=== PATIENT | male | born 1965 | race Caucasian/White ===

== ENCOUNTER 2019-04-15 09:33 | Inpatient (IN) ==
[2019-04-15] MEDS ORDERED: SODIUM CHLORIDE 0.9% 1000ML 1,000 ML IV ONE (10:22)
[2019-04-15 10:42] LABS: Basophils # (auto) 0.03 K/uL (0-0.2); Basophils % (auto) 0.5 %; Eosinophils # (auto) 0.27 K/uL (0-0.5); Eosinophils % (auto) 4.1 %; Hematocrit (blood only) 45.9 % (42-52); Hemoglobin 15.9 g/dL (14.0-18.0); Immature Granulocytes # (auto) 0.02 K/uL (0.00-0.02); Immature Granulocytes % (auto) 0.3 %; Lymphocytes # (auto) 2.07 K/uL (1.2-3.4); Lymphocytes % (auto) 31.6 %; Mean Corpuscular Hgb Conc 34.6 g/dL (32-36); Mean Corpuscular Volume 86.6 fL (80-100); Mean Platelet Volume 10.2 fL (7.4-10.4); Monocytes # (auto) 0.54 K/uL (0.11-0.59); Monocytes % (auto) 8.2 %; Neutrophils # (auto) 3.63 K/uL (1.4-6.5); Neutrophils % (auto) 55.3 %; Platelet Count 186 K/uL (130-400); RDW Coefficient of Variation 13.3 % (11.5-14.5); RDW Standard Deviation 42.3 fL (36.4-46.3); White Blood Count 6.56 K/uL (4.8-10.8)
--- NOTE | 2019-04-15 10:46 | XRay Report ---
XR chest 1V portable HISTORY: Atypical Chest Pain COMPARISON: None. FINDINGS: The lungs are clear. Cardiac silhouette is borderline enlarged. No pleural effusions. No pn eumothorax. IMPRESSION: Borderline cardiomegaly. Otherwise, no acute process within the chest. Electronically signed by: Zohaib Noland M.D. 04/15/2019 10:44 AM
[2019-04-15 10:57] LABS: Alanine Aminotransferase 33 U/L (12-78); Albumin Level 3.9 gm/dl (3.4-5.0); Aspartate Aminotransferase 17 U/L (15-37); BUN Creatinine Ratio 14.1 (10-20); Blood Urea Nitrogen 12 mg/dl (7-18); Carbon Dioxide 30 mmol/L (21-32); Chloride 106 mmol/L (98-107); Creatinine Clr Calc Pharmacy 132.2 ml/min; Est GFR (African American) 114.2; Est GFR (Non-African American) 98.5; Glucose 105 mg/dl (70-99); Lipase 121 U/L (73-393); Magnesium 2.1 mg/dl (1.8-2.4); Potassium 4.1 mmol/L (3.5-5.1); Sodium 139 mmol/L (136-145)
[2019-04-15 11:08] LABS: Albumin Globulin Ratio 1.2 (0.9-2); Alkaline Phosphatase 76 U/L (45-117); Bilirubin,Total 0.4 mg/dl (0.2-1); Globulin 3.3 gm/dl (2.5-4.0); Thyroid Stimulating Hormone 0.823 uIu/ml (0.300-4.500); Total Protein 7.2 gm/dl (6.4-8.2); Troponin I < 0.015 ng/ml (0-0.045)
[2019-04-15] MEDS ORDERED: ASPIRIN CHEW 324 MG PO STA (12:07)
--- NOTE | 2019-04-15 13:13 | History & Physical Report ---
Date of Service April 15, 2019 Assessment & Plan (1) Chest pain, exertional: Mr. Richter is a 53-year-old male who has significant past medical history of HTN, HLD, GERD, tobacco abuse, alcohol abuse who presents to [facility] ED secondary to exertional chest pain x2 to 3 weeks. In ED patient was hypertensive but otherwise hemodynamically stable. His initial troponin was negative and EKG revealed normal sinus rhythm at [address] or T wave changes. His CBC and CMP relatively unremarkable except for mildly elevated glucose at 105. Chest x-ray revealed cardiomegaly but no overt cardiopulmonary abnormality. Chest pain with exertion and now at rest concerning for unstable angina Currently chest pain free Risk factors include HLD, Tobacco/etoh use, hx of HTN admit to PCU consult cardiology obtain echocardiogram cycle troponin and ecg fasting lipid panel, a1c in a.m. losartan 50mg x 1 now - monitor BP tx accordingly NPO after midnight (2) HTN (hypertension): Patient with history of hypertensive in the past, treated with lisinopril 5 mg daily. Per lisinopril discontinued secondary to patient with significant weight loss and side effect of cough Give 50mg Losartan x 1 now - monitor BP will need to determine if pt has true uncontrolled HTN at baseline vs situational would avoid CCB for now given trace lower ext swelling (3) High cholesterol: Continue statin - increase to 80mg daily with 1st dose now for plaque stabilization Fasting lipid panel in a.m. (4) Acid reflux: Continue PPI Asymptomatic Do not feel symptoms related to GERD (5) Tobacco abuse: Nicotine patch Current smoking cessation (6) EtOH dependence: Patient admits to drinking 2-3 light beers a day Alcohol withdrawal monitoring protocol (7) DVT prophylaxis: SCD/TEDS for now Disposition: admit to PCU Follow up: PCP Dr. Rey upon discharge Patient was seen and examined in collaboration with Dr. Plata, please see addendum History of Present Illness Chief Complaint: Chest pain with exertion x2 to 3 weeks. Primary Care Provider: Terence Rey MD Mr. Richter is a 53-year-old male who has significant past medical history of HTN, HLD, GERD, tobacco abuse, alcohol abuse who presents to [facility] ED secondary to exertional chest pain x2 to 3 weeks. He elicits over the past 2 to 3 weeks whenever he exerts himself he gets substernal, nonradiating chest pressure. is at bedside. Symptoms resolved approximately 10 minutes with rest. 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 He has never had anything like this in the past. He does occasionally get GERD and therefore he tried to drink some milk which usually improves his symptoms. This did not resolve his symptoms. He denies any diaphoresis, lightheadedness, dizziness, nausea, vomiting, palpitations, cough, hemoptysis with symptoms. He further denies any recent illness, fever, chills, sweats, syncope, shortness of breath at rest, CATHERINE, PND, orthopnea, abdominal pain, change in bowel or urinary habits. He occasionally does get mild lower extremity swelling. He is also noticed his symptoms at work. What prompted him to seek ED treatment today is that over the past 2 nights he woke up at approximately 3 AM with substernal chest pressure while lying down. The symptoms are set up. He is an every day smoker approximately 1 to 2 packs a day. He also drinks 2-3 light beers daily. He is unsure of his exact family history but does elicit that his sister who is 59 was told she has a, "blockage," but unknown to what extent. He has not had anything to eat today but he did have 1 cup of caffeinated coffee. In ED patient was hypertensive but otherwise hemodynamically stable. His initial troponin was negative and EKG revealed normal sinus rhythm at [address] or T wave changes. His CBC and CMP relatively unremarkable except for mildly elevated glucose at 105. Chest x-ray revealed cardiomegaly but no overt cardiopulmonary abnormality. Allergies Allergy/AdvReac Type Severity Reaction Status Date / Time No Known Allergies Allergy Unverified 04/15/19 11:34 Home Medications Home Medications Medication Instructions Recorded Confirmed Type atorvastatin 40 mg PO HS 04/15/19 04/15/19 History omeprazole 20 mg PO BID 04/15/19 04/15/19 History Past Med/Surg History Medical History Acid reflux High cholesterol HTN (hypertension) Surgical History History of colonoscopy History of esophagogastroduodenoscopy (EGD) History of vasectomy Family History Sister Heart disease, Onset Age: 59 Father Non Hodgkin's lymphoma Social History Preferred Language: Mongolian Communication Ability: Effective 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 Beliefs That Will Affect Care: None marital status: Current Living Situation: Spouse current occupational status: employed Other Information That Helps Us Care for You: No Feels Safe at Home: Yes Safety Concerns: Feels Safe At This Time Smoking Status: Current every day smoker Tobacco Type: cigarettes ; Years Smoked: 30 ; Cigarettes Per Day: 20-40 a day ; Do You Dip or Chew Tobacco: No ; Second Hand Exposure: No ; Tobacco Cessation Education Requested by Patient: No Hx Alcohol Use: Yes Alcohol type: beer Alcohol Intake Frequency Comment: 2-3 light beers daily Hx Substance Use: No Review of Systems Review of Systems: All systems reviewed & are unremarkable except as noted in HPI & below Physical Exam Physical Exam: Constitutional: WD/WN, male, obese, vitals as above, NAD, sitting up in bed, pleasant, conversing easily Head: Normocephalic, Atraumatic Eyes: PERRL, conjunctivae normal, anicteric sclerae ENMT: external ear and nose normal, oropharynx normal Neck: trachea midline, no thyromegaly normal visual inspection Respiratory: normal respiratory effort, lungs clear to auscultation, no wheeze, rales, rhonchi. Normal insp/exp effort, no accessory muscle use Cardiovascular: RRR, no murmur, trace pretibial edema, negative homans, no warmth or redness Vessels: no JVD or carotid bruit Chest: normal inspection of chest Abdomen: Protuberant abdomen, normal bowel sounds, soft, nontender, no hepatosplenomegaly Musculoskeletal: no cyanosis or clubbing, extremities motor strength 5/5 Skin: no rashes, warm and dry normal turgor Neurologic: PERRL, EOMI, accommodation nl, no face palsy, no dysarthria CN's II-XI intact bilaterally and moves all extremities Psychiatric: A+Ox3, euthymic affect Lymphatic: no cervical or axillary lymphadenopathy : deferred Results & Data Vital Signs (Past 12 Hours) Vital Signs Temp Pulse Pulse Resp BP BP Pulse Ox 04/15/19 11:00 69 71 20 142/91 H 96 04/15/19 09:41 36.7 C 81 18 171/117 H 96 Laboratory Results Short CBC 04/15/19 Range/Units 10:30 WBC 6.56 (4.8-10.8) K/uL Hgb 15.9 (14.0-18.0) g/dL Hct 45.9 (42-52) % Plt Count 186 (130-400) K/uL BMP 04/15/19 10:30 Sodium 139 Potassium 4.1 Chloride 106 Carbon Dioxide 30 BUN 12 Creatinine 0.87 Glucose 105 H Calcium 9.0 Cardiac Enzymes 04/15/19 Range/Units 10:30 Troponin I < 0.015 (0-0.045) ng/ml Liver Function 04/15/19 Range/Units 10:30 Total Bilirubin 0.4 (0.2-1) mg/dl AST 17 (15-37) U/L ALT 33 (12-78) U/L Alkaline Phosphatase 76 (45-117) U/L Albumin 3.9 (3.4-5.0) gm/dl Diagnostic Findings CXR: IMPRESSION: Borderline cardiomegaly. Otherwise, no acute process within the chest. ECG Rate (beats per minute): 68 Rhythm: normal sinus Code Status & VTE Plan Code Status Full VTE Prophylaxis Plan VTE Prophylaxis will be ordered: Yes Supervising Physician Co-Signing Physician Notes I have seen and examined the patient and have discussed the case with the provider above. I agree with the assessment and plan as stated with the following exceptions. 53 yo M with unstable angina presented with a couple weeks of increasing chest pain frequency and intensity. No known CAD or chest pain in the past with risk factors including smoking, hyperlipidemia and possibly undiagnosed HTN (although BP elevation may have also been situational). Echo with no acute wall motion abnormalities and normal EF. Trop negative and nonischemic EKG. Cardiology to cath in am. Metoprolol, topical nitrates, Lipitor, ASA and heparin drip added. Initially Losartan was started to better control BP, however, this was stopped once topical nitrates were added. BP should be followed closely by PCP as outpatient. Strongly advised for him to quit smoking. He reports being interested in trying chantix again after discharge, which worked for him in the past. Physical exam revealed NAD, WNWD man, normal heart exam with regular rate and rhythm heard, normal S1/2 and no murmurs, JVD or peripheral edema. Abdomen was soft and nontender without distension. Physical exam otherwise unremarkable. Cont medical management of UA as above, trend trop, cath in am. Boni, DO
[2019-04-15] MEDS ORDERED: LOSARTAN POTASSIUM 50 MG TAB PO SCH (13:30)
[2019-04-15] MEDS ORDERED: PERFLUTREN LIPID MICROSPHERE (DEFINITY) IV ONE (14:03)
[2019-04-15] MEDS ORDERED: POLYETHYLENE (MIRALAX) 17 GM PACK PO PRN (14:43)
[2019-04-15] MEDS ORDERED: ACETAMINOPHEN 325 MG TAB PO PRN (14:43)
[2019-04-15] MEDS ORDERED: ONDANSETRON INJ 2 MG/ML 2 ML VIAL IV PRN (14:43)
[2019-04-15] MEDS ORDERED: NITROGLYCERIN SL 0.4 MG/TAB TAB SL PRN (14:43)
[2019-04-15] MEDS ORDERED: MAGNESIUM HYDROXIDE SUSP 30 ML UDC PO PRN (14:43)
[2019-04-15] MEDS ORDERED: ALUMINUM/MAGNESIUM SUSP 30 ML UDC PO PRN (14:43)
[2019-04-15] MEDS: ATORVASTATIN 40 MG TAB PO SCH (15:37)
--- NOTE | 2019-04-15 16:13 | Cardiology Consultation ---
Date of Consultation April 15, 2019 Assessment & Plan (1) Unstable angina: (2) HTN (hypertension): (3) High cholesterol: (4) Tobacco abuse: (5) EtOH dependence: I had a long discussion with the patient and his family regarding his progressive exertional symptoms as well as chest tightness noted at rest last evening. I am concerned patient is experiencing unstable angina with progressive decline in functional capacity. Recommend beta-pastor, IV heparin infusion, aspirin, topical nitrates, and statin therapy. Further ischemic evaluation is indicated. Cardiac catheterization versus exercise stress testing discussed at length. Patient is agreeable to proceed with cardiac cat heterization in a.m. 04/16/2019. Cardiac enzymes will be cycled x3 sets. To need telemetry monitoring during hospitalization. Thank you for allowing to participate in care of your patient. History of Present Illness Reason for Consultation: Chest pain Requesting Physician: Dr. Plata Attending Physician: Ira Plata, DO History of Present Illness 53-year-old male presented to the emergency department with a 3-week history of progressive chest discomfort. Patient describes a tightness and heaviness occurring with ambulation particularly on incline. Noted symptoms approximately 3 weeks ago when walking on an incline at work. Discomfort relieved with rest. Chest tightness noted at lower levels of activity over the past week. Last night patient reports awakening on 3 occasions with chest tightness. Currently pain-free. Denies personal history of coronary disease, congestive heart failure, or rheumatic fever as a child. Admits to smoking 1 to 2 pack of cigarettes per day for nearly 40 years. Takes atorvastatin and omeprazole on a daily basis. Diagnosed with hypertension, however, no longer taking antihypertensive medications. Denies family history of premature CAD. and daughter present at bedside. They offer no additional concerns/complaints this time. Allergies Allergy/AdvReac Type Severity Reaction Status Date / Time No Known Allergies Allergy Unverified 04/15/19 11:34 Home Medications Home Medications Medication Instructions Recorded Confirmed Type atorvastatin 40 mg PO HS 04/15/19 04/15/19 History omeprazole 20 mg PO BID 04/15/19 04/15/19 History Patient History Medical History Acid reflux High cholesterol HTN (hypertension) Surgical History History of colonoscopy History of esophagogastroduodenoscopy (EGD) History of vasectomy Family History Sister Heart disease, Onset Age: 59 Father Non Hodgkin's lymphoma Social History Preferred Language: Guamanian Communication Ability: Effective 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 Beliefs That Will Affect Care: None marital status: Current Living Situation: Spouse current occupational status: employed Other Information That Helps Us Care for You: No Feels Safe at Home: Yes Safety Concerns: Feels Safe At This Time Smoking Status: Current every day smoker Tobacco Type: cigarettes ; Years Smoked: 30 ; Cigarettes Per Day: 20-40 a day ; Do You Dip or Chew Tobacco: No ; Second Hand Exposure: No ; Tobacco Cessation Education Requested by Patient: No Hx Alcohol Use: Yes Alcohol type: beer Alcohol Intake Frequency Comment: 2-3 light beers daily Hx Substance Use: No Review of Systems Review of Systems: All systems reviewed & are unremarkable except as noted in HPI & below Physical Exam Constitutional: well developed, well nourished and + obese Respiratory: normal respiratory effort, lungs clear to auscultation Cardiovascular: Rate/Rhythm: regular rate and regular rhythm Heart Sounds: normal S1 and normal S2; no murmur and no cardiac rub Vessels: femoral pulses present and radial pulses present; no JVD and no carotid bruit Extremities: no calf tenderness, no pedal edema and no edema Gastrointestinal (Abdomen): Inspection/Auscultation: abdomen normal to inspection and normal bowel sounds; abdomen not distended Percussion/Palpation: abdomen soft; abdomen nontender, no guarding and abdomen not rigid Musculoskeletal: no cyanosis or clubbing, extremities motor strength 5/5 Neurologic: PERRL, EOMI, accommodation nl, no face palsy, no dysarthria Results & Data Vital Signs (Past 12 Hours) Vital Signs Temp Pulse Pulse Resp BP BP Pulse Ox 04/15/19 14:43 04/15/19 14:30 36.3 C L 64 16 161/96 H 96 04/15/19 13:30 64 16 137/95 96 04/15/19 13:00 63 18 155/105 H 95 04/15/19 12:51 74 25 H 181/122 H 94 04/15/19 12:43 68 18 171/113 H 98 04/15/19 12:30 69 18 144/100 H 96 04/15/19 12:00 61 16 139/92 95 04/15/19 11:30 68 18 136/93 94 04/15/19 11:06 67 20 142/91 H 95 04/15/19 11:00 69 71 20 142/91 H 96 04/15/19 09:41 36.7 C 81 18 171/117 H 96 Pulse Ox 04/15/19 14:43 96 04/15/19 14:30 04/15/19 13:30 04/15/19 13:00 04/15/19 12:51 04/15/19 12:43 04/15/19 12:30 04/15/19 12:00 04/15/19 11:30 04/15/19 11:06 04/15/19 11:00 04/15/19 09:41 (1) HTN (hypertension) Hypertension type: essential hypertension Qualified Code(s): I10 - Essential (primary) hypertension
[2019-04-15] MEDS ORDERED: HEPARIN IV BOLUS 8,000 UNITS in SYRINGE 0 ML IV ONE (16:15)
[2019-04-15] MEDS: NICOTINE 14 MG/24 HR PATCH TD SCH (16:25)
[2019-04-15 16:26] LABS: Partial Thromboplastin Ratio 1.1; Partial Thromboplastin Time 29.1 Seconds (21.0-31.0)
[2019-04-15] MEDS: NITROGLYCERIN 2% OINTMENT 30GM TUBE EXT SCH ×2 (16:26→19:58)
[2019-04-15] MEDS: HEPARIN SODIUM/DEXTROSE 25,000 UNITS/500 ML BAG IV SCH (16:27)
--- NOTE | 2019-04-15 19:32 | Emergency Department Note ---
Entered by Elayne Love acting as a scribe for Ramiro Yang MD History of Present Illness General Chief complaint: Chest Pain Stated complaint: CHEST PAINS Time Seen by Provider: 04/15/19 10:22 Source: patient History of Present Illness Provider complaint: chest pain Onset (ago): week(s) 1 Location: chest Radiation: non-radiation Pain Consistency: + intermittent Maximum Pain Intensity: 0 Relieved By: + rest Exacerbated By: + other (inclines and up stairs ) Associated symptoms: + denies other symptoms and + chest pain; no cough, no fever/chills and no nausea/vomiting The patient is a 53 y/o male who presents to the emergency department for evaluation of intermittent chest pain with exertion that began a week ago. The patient states that he has been hunting and sitting in the tree stand he is fine but walking his chest gets tight. He reports that he has issues with acid reflux that he thought may be the cause but it has been persisting so he feels a need to be evaluated. The states that the patient went hunting this morning and the patient states the most recent episode of symptoms was 3 hours ago. The patient denies a history of heart issues, fever, chills, cough, congestion, diarrhea, and any other symptoms. Home Medications Home Medications Medication Instructions Recorded Confirmed Type atorvastatin 40 mg PO HS 04/15/19 04/15/19 History omeprazole 20 mg PO BID 04/15/19 04/15/19 History Allergies Allergy/AdvReac Type Severity Reaction Status Date / Time No Known Allergies Allergy Unverified 04/15/19 11:34 Past Med/Surg History Medical History Acid reflux High cholesterol HTN (hypertension) (Acute) Surgical History History of colonoscopy History of esophagogastroduodenoscopy (EGD) History of vasectomy Family History Sister Heart disease, Onset Age: 59 Father Non Hodgkin's lymphoma Social History Preferred Language: Persian Communication Ability: Effective 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 Beliefs That Will Affect Care: None marital status: Current Living Situation: Spouse current occupational status: employed Other Information That Helps Us Care for You: No Feels Safe at Home: Yes Safety Concerns: Feels Safe At This Time Smoking Status: Current every day smoker Tobacco Type: cigarettes ; Years Smoked: 30 ; Cigarettes Per Day: 20-40 a day ; Do You Dip or Chew Tobacco: No ; Second Hand Exposure: No ; Tobacco Cessation Education Requested by Patient: No Hx Alcohol Use: Yes Alcohol type: beer Alcohol Intake Frequency Comment: 2-3 light beers daily Hx Substance Use: No Review of Systems See HPI for pertinent positives & negatives. and A total of 10 systems reviewed and were otherwise negative Physical Exam Vital Signs Vital Signs - 24 hr 04/15/19 09:41 04/15/19 09:48 04/15/19 11:00 Temperature 36.7 C Temperature Source Oral Pulse Rate 81 69 Pulse Rate [Apical] 71 Pulse Rate from SpO2 Sensor Pulse Rhythm Regular Pulse Rhythm [Apical] Regular Pulse Strength [Apical] Normal Respiratory Rate 18 20 Respiratory Effort / Characteristics Non-Labored Spontaneous Non-Labored Spontaneous Non-Labored Spontaneous Respiratory Depth Normal Normal Normal Respiratory Pattern Regular Regular Blood Pressure 171/117 H Blood Pressure [Right Arm] 142/91 H Blood Pressure Mean 135 Blood Pressure Mean [Right Arm] 108 Blood Pressure Position Sitting Blood Pressure Position [Right Arm] Lying Pulse Oximetry 96 96 Oxygen Delivery Method Room Air Room Air Room Air Sepsis Recent Fever Within 48 Hours No Sepsis New/Unexplained Change in Mental Status No Sepsis Action Taken by Nursing No Action Required 04/15/19 11:06 04/15/19 11:30 04/15/19 12:00 Temperature Temperature Source Pulse Rate 67 68 61 Pulse Rate [Apical] Pulse Rate from SpO2 Sensor 69 67 62 Pulse Rhythm Pulse Rhythm [Apical] Pulse Strength [Apical] Respiratory Rate 20 18 16 Respiratory Effort / Characteristics Respiratory Depth Respiratory Pattern Blood Pressure 142/91 H 136/93 139/92 Blood Pressure [Right Arm] Blood Pressure Mean 100 99 98 Blood Pressure Mean [Right Arm] Blood Pressure Position Blood Pressure Position [Right Arm] Pulse Oximetry 95 94 95 Oxygen Delivery Method Room Air Room Air Room Air Sepsis Recent Fever Within 48 Hours Sepsis New/Unexplained Change in Mental Status Sepsis Action Taken by Nursing 04/15/19 12:30 04/15/19 12:43 04/15/19 12:51 Temperature Temperature Source Pulse Rate 69 68 74 Pulse Rate [Apical] Pulse Rate from SpO2 Sensor 66 69 74 Pulse Rhythm Pulse Rhythm [Apical] Pulse Strength [Apical] Respiratory Rate 18 18 25 H Respiratory Effort / Characteristics Respiratory Depth Respiratory Pattern Blood Pressure 144/100 H 171/113 H 181/122 H Blood Pressure [Right Arm] Blood Pressure Mean 113 127 139 Blood Pressure Mean [Right Arm] Blood Pressure Position Blood Pressure Position [Right Arm] Pulse Oximetry 96 98 94 Oxygen Delivery Method Room Air Room Air Room Air Sepsis Recent Fever Within 48 Hours Sepsis New/Unexplained Change in Mental Status Sepsis Action Taken by Nursing GENERAL: Awake, alert, well-appearing, in no distress HENT: Normocephalic, atraumatic. Oropharynx with dry mucous membranes and otherwise unremarkable. EYES: Normal conjunctiva. Sclera non-icteric. NECK: Supple. No nuchal rigidity. FROM. No JVD. RESPIRATORY: Scant intermittent wheeze, otherwise clear. CARDIAC: Regular rate, normal rhythm. Extremities warm and well perfused. Pulses equal. ABDOMEN: Soft, non-distended. No tenderness to palpation. No rebound or guarding. No masses. RECTAL: Deferred. MUSCULOSKELETAL: Chest examination reveals no tenderness. The back is symmetrical on inspection without obvious abnormality. There is no CVA tenderness to palpation. No joint edema. LOWER EXTREMITIES: Calves are equal size bilaterally and non-tender. No edema. No discoloration. NEURO: Normal sensorium. No sensory or motor deficits noted. SKIN: No rash or jaundice noted. Course Course 1045: Past medical records reviewed. The patient was evaluated in room A10. A complete history and physical exam was performed. Based on the initial exam and the symptoms admission was recommended to the patient. 1252: I spoke with Karen Mcdonald [facility] Hospitalist. She will evaluate for further management. Administered Medications Aspirin (Ecotrin Ectab) 81 mg PO [facility] Stop: 05/16/19 08:59 Last Admin: 04/16/19 08:09 Dose: 81 mg Documented by: [id number] [facility]orvastatin Calcium ([facility]) [facility] Stop: 05/15/19 13:29 Last Admin: 04/16/19 14:30 Dose: 80 mg Documented by: [id number] Admin: 04/15/19 15:37 Dose: 80 mg Documented by: [id number] Heparin Sodium/Dextrose (Heparin Sodium/Dextrose) 25,000 units in 500 mls @ 0 mls/hr IV .Q0M [place]; Protocol Stop: 05/15/19 16:14 Last Titration: 04/16/19 09:25 Dose: 0 units/hr, 0 mls/hr Documented by: [id number] Cosigned by: [id number] Admin: 04/16/19 08:05 Dose: 1,600 units/hr, 32 mls/hr Documented by: [id number] Cosigned by: [id number] Titration: 04/16/19 07:40 Dose: 1,600 units/hr, 32 mls/hr Documented by: [id number] Cosigned by: [id number] Titration: 04/16/19 07:20 Dose: 1,600 units/hr, 32 mls/hr Documented by: [id number] Cosigned by: [id number] Titration: 04/15/19 23:02 Dose: 1,600 units/hr, 32 mls/hr Documented by: [id number] Cosigned by: [id number] Titration: 04/15/19 19:07 Dose: 1,700 units/hr, 34 mls/hr Documented by: [id number] Cosigned by: [id number] Admin: 04/15/19 16:27 Dose: 1,700 units/hr, 34 mls/hr Documented by: [id number] Cosigned by: [id number] Sodium Chloride (Nss 1000ml) 1,000 mls @ 100 mls/hr IV .Q10H [facility] Stop: 04/16/19 19:14 Last Admin: 04/16/19 14:28 Dose: 100 mls/hr Documented by: [id number] Metoprolol Tartrate (Lopressor) 12.5 mg PO BID [facility] Stop: 05/15/19 20:59 Last Admin: 04/16/19 08:09 Dose: 12.5 mg Documented by: [id number] Admin: 04/15/19 19:57 Dose: 12.5 mg Documented by: [id number] Miscellaneous (Remove Nicoderm Patch) 1 ea N/A DAILY@[id number] [facility] Stop: 05/16/19 08:58 Last Admin: 04/16/19 08:05 Dose: 1 ea Documented by: [id number] Nicotine (Nicoderm Cq) 14 mg TD DAILY [facility] Stop: 05/15/19 15:29 Last Admin: 04/16/19 08:08 Dose: 14 mg Documented by: [id number] Admin: 04/15/19 16:25 Dose: Not Given Documented by: [id number] Nitroglycerin (Nitro-Bid 2%) 1 inch EXT Q6H [facility] Stop: 05/15/19 15:44 Last Admin: 04/16/19 08:11 Dose: 1 inch Documented by: [id number] Admin: 04/16/19 04:38 Dose: 1 inch Documented by: [id number] Admin: 04/15/19 19:58 Dose: 1 inch Documented by: [id number] Admin: 04/15/19 16:26 Dose: 1 inch Documented by: [id number] Pantoprazole Sodium (Protonix) 40 mg PO BID [facility] Stop: 05/15/19 20:59 Last Admin: 04/16/19 08:08 Dose: 40 mg Documented by: [id number] Admin: 04/15/19 19:57 Dose: 40 mg Documented by: [id number] Discontinued Medications Aspirin (Aspirin) 324 mg PO NOW [facility] Stop: 04/15/19 12:08 Last Admin: 04/15/19 12:14 Dose: 324 mg Documented by: [id number] Clopidogrel Bisulfate (Plavix) Confirm Administered Dose 600 mg .ROUTE .STK-MED ONE Stop: 04/16/19 13:48 Last Admin: 04/16/19 13:59 Dose: 600 mg Documented by: [id number] Fentanyl Citrate (Fentanyl Citrate) Confirm Administered Dose 100 mcg .ROUTE .STK-MED ONE Stop: 04/16/19 12:34 Last Increment: 04/16/19 13:41 Dose: 75 mcg Documented by: [id number] Fentanyl Citrate (Fentanyl Citrate) Confirm Administered Dose 100 mcg .ROUTE .STK-MED ONE Stop: 04/16/19 13:55 Last Increment: 04/16/19 13:59 Dose: 25 mcg Documented by: [id number] Heparin Sodium (Porcine) (Heparin Iv Bolus (Professional Nursing Assistant Use Only)) Confirm Administered Dose 10,000 units .ROUTE .STK-MED ONE Stop: 04/16/19 12:34 Last Admin: 04/16/19 13:41 Dose: 10,000 units Documented by: [id number] Heparin Sodium (Porcine) (Heparin Iv Bolus (Professional Nursing Assistant Use Only)) Confirm Administered Dose 10,000 units .ROUTE .STK-MED ONE Stop: 04/16/19 13:32 Last Admin: 04/16/19 13:42 Dose: 2,000 units Documented by: [id number] Heparin Sodium/Dextrose () 1 ea IV NOW STA; Protocol Stop: 04/15/19 15:33 Last Admin: 04/15/19 16:35 Dose: 1 ea Documented by: [id number] Heparin Sodium/Sodium Chloride (Heparin/Nss 1000 Unit/500ml Flush Bag) Confirm Administered Dose 3,000 units IV .STK-MED ONE Stop: 04/16/19 12:34 Last Admin: 04/16/19 14:25 Dose: Not Given Documented by: [id number] Sodium Chloride (Nss 1000ml) 1,000 mls @ 999 mls/hr IV .Q1H1M ONE Stop: 04/15/19 11:22 Last Infusion: 04/15/19 12:04 Dose: 0 mls/hr Documented by: [id number] Admin: 04/15/19 11:00 Dose: 999 mls/hr Documented by: [id number] Heparin Sodium (Porcine) 8,000 (units/ Syringe) 8 mls @ 10 mls/min IV NOW ONE Stop: 04/15/19 16:16 Last Admin: 04/15/19 16:31 Dose: 10 mls/min Documented by: [id number] Cosigned by: [id number] Losartan Potassium (Cozaar) 50 mg PO QAM [place] Stop: 05/15/19 13:29 Last Admin: 04/15/19 15:37 Dose: 50 mg Documented by: [id number] Midazolam HCl (Versed) Confirm Administered Dose 2 mg .ROUTE .STK-MED ONE Stop: 04/16/19 12:34 Last Admin: 04/16/19 13:41 Dose: 2 mg Documented by: [id number] Midazolam HCl (Versed) Confirm Administered Dose 2 mg .ROUTE .STK-MED ONE Stop: 04/16/19 13:33 Last Increment: 04/16/19 13:42 Dose: 1 mg Documented by: [id number] Nicardipine HCl (Cardene) Confirm Administered Dose 25 mg .ROUTE .STK-MED ONE Stop: 04/16/19 12:34 Last Admin: 04/16/19 14:25 Dose: Not Given Documented by: [id number] Nitroglycerin/Dextrose (Nitroglycerin/D5w 100 Mcg/Ml 20ml Syringe) Confirm Administered Dose 2,000 mcg .ROUTE .STK-MED ONE Stop: 04/16/19 12:34 Last Admin: 04/16/19 14:25 Dose: Not Given Documented by: [id number] Perflutren Lipid Microsphere (Definity) 2 ml IV ONCE ONE Stop: 04/15/19 14:04 Last Admin: 04/15/19 14:04 Dose: 2 ml Documented by: [id number] Medical Decision Making Differential Diagnosis Chest pain: Acute coronary syndrome, pulmonary embolus, aortic dissection, musculoskeletal pain, pneumonia, pleural effusion, pneumothorax Medical Records Attestation: I reviewed the patient's medical records. Home Medications Current Medication List: was personally reviewed by tn Laboratory Data Attestation: I reviewed the patient's lab results. Result diagrams: 04/16/19 05:18 04/16/19 05:18 Lab Results 04/15/19 04/15/19 Range/Units 10:30 10:30 WBC 6.56 (4.8-10.8) K/uL RBC 5.30 (4.7-6.1) M/uL Hgb 15.9 (14.0-18.0) g/dL Hct 45.9 (42-52) % MCV 86.6 (80-100) fL MCH 30.0 (25-34) pg MCHC 34.6 (32-36) g/dL RDW Std Deviation 42.3 (36.4-46.3) fL RDW Coeff of Heydi 13.3 (11.5-14.5) % Plt Count 186 (130-400) K/uL MPV 10.2 (7.4-10.4) fL Immature Gran % (Auto) 0.3 % Neut % (Auto) 55.3 % Lymph % (Auto) 31.6 % Hyde % (Auto) 8.2 % Eos % (Auto) 4.1 % Baso % (Auto) 0.5 % Immature Gran # (Auto) 0.02 (0.00-0.02) K/uL Neut # (Auto) 3.63 (1.4-6.5) K/uL Lymph # (Auto) 2.07 (1.2-3.4) K/uL Hyde # (Auto) 0.54 (0.11-0.59) K/uL Eos # (Auto) 0.27 (0-0.5) K/uL Baso # (Auto) 0.03 (0-0.2) K/uL Sodium 139 (136-145) mmol/L Potassium 4.1 (3.5-5.1) mmol/L Chloride 106 (98-107) mmol/L Carbon Dioxide 30 (21-32) mmol/L Anion Gap 3.0 (3-11) BUN 12 (7-18) mg/dl Creatinine 0.87 (0.6-1.4) mg/dl Est Cr Clr Drug Dosing 132.2 ml/min Est GFR ( Amer) 114.2 Est GFR (Non-Af Amer) 98.5 BUN/Creatinine Ratio 14.1 (10-20) Glucose 105 H (70-99) mg/dl Calcium 9.0 (8.5-10.1) mg/dl Phosphorus 3.0 (2.5-4.9) mg/dl Magnesium 2.1 (1.8-2.4) mg/dl Total Bilirubin 0.4 (0.2-1) mg/dl AST 17 (15-37) U/L ALT 33 (12-78) U/L Alkaline Phosphatase 76 (45-117) U/L Troponin I < 0.015 (0-0.045) ng/ml Total Protein 7.2 (6.4-8.2) gm/dl Albumin 3.9 (3.4-5.0) gm/dl Globulin 3.3 (2.5-4.0) gm/dl Albumin/Globulin Ratio 1.2 (0.9-2) Lipase 121 (73-393) U/L TSH 0.823 (0.300-4.500) uIu/ml Imaging Data Radiologist's Impression: Radiology results as stated below per my review and the radiologist's interpretation: XR chest 1V portable HISTORY: Atypical Chest Pain COMPARISON: None. FINDINGS: The lungs are clear. Cardiac silhouette is borderline enlarged. No pleural effusions. No pneumothorax. IMPRESSION: Borderline cardiomegaly. Otherwise, no acute process within the chest. Electronically signed by: Zohaib Noland M.D. 04/15/2019 10:44 AM ECG Data Attestation: I personally reviewed and interpreted this ECG as follows: Indication: + chest pain Rate (beats per minute): 68 Rhythm: + normal sinus ECG Intervals/blocks: + Normal QT (401) ECG Solen: + Normal ECG Findings: + Other (no acute ischemia ); no PACs and no PVCs Blood Pressure Blood Pressure Findings: Elevated blood pressure Blood Pressure Disposition: further management by hospitalist LUCÍA Sharma The patient is a pleasant 53-year-old gentleman with a past medical history of hypertension, hyperlipidemia who presents emergency department accompanied by his for complaints of exertional chest pain over the past week which he reports is quite consistent with most recent episode this morning when he was hunting around 8 AM per HPI. On arrival the patient has any symptoms at this time. He is in no acute distress, afebrile with elevated blood pressure 170s/110s and vital signs otherwise stable. EKG without overt acute ischemia. Chest x-ray negative for acute process. WBC, H/H and platelets within normal limits. Chemistry without acidosis. Electrolytes and LFTs unremarkable. Troponin negative/undetectable. The patient's exertional symptoms in setting of his cardiac risk factors I did recommend to the patient admission for further management including possible stress test versus even catheterization depending on cardiology recommendations, given his new onset exertional symptoms. Patient was agreeable. Patient was ordered full dose aspirin. Given that patient is currently asymptomatic, will defer decision for heparin to admitting team. Case was discussed with Bishop Fritz PAC, who evaluate the patient for admission. Impression & Plan Chest pain, exertional, HTN (hypertension), History of hyperlipidemia, Current every day smoker Discharge Plan Visit Data *Final* Discharge Date/Time: 04/15/19 14:11 Chief Complaint: Chest Pain Stated Complaint: CHEST PAINS ED Provider: Ramiro Yang Discharge Problem: Chest pain, exertional, HTN (hypertension), History of hyperlipidemia, Current every day smoker Patient Disposition: Admitted As Inpatient Discharge Instructions Interventions: ED Discharge Assessment Last Done: 04/15/19 14:11 The scribe's documentation has been prepared under my direction and personally reviewed by me in its entirety. I confirm that the note above accurately reflect s all work, treatment, procedures, and medical decision making performed by me.
[2019-04-15] MEDS: METOPROLOL TARTRATE 25 MG TAB PO SCH (19:57)
[2019-04-15] MEDS: PANTOprazole 40 MG TAB PO SCH (19:57)
[2019-04-15] MEDS ORDERED: ATORVASTATIN 40 MG TAB PO SCH ×2 (21:00)
[2019-04-15 22:57] LABS: Partial Thromboplastin Ratio 2.5
[2019-04-15 23:01] LABS: Partial Thromboplastin Time 68.9 Seconds (21.0-31.0)
[2019-04-16] MEDS: NITROGLYCERIN 2% OINTMENT 30GM TUBE EXT SCH ×4 (04:38→20:50)
[2019-04-16 05:39] LABS: Hematocrit (blood only) 44.7 % (42-52); Hemoglobin 15.2 g/dL (14.0-18.0); Mean Corpuscular Hemoglobin 29.9 pg (25-34); Mean Corpuscular Volume 87.8 fL (80-100); Mean Platelet Volume 10.2 fL (7.4-10.4); Platelet Count 170 K/uL (130-400); RDW Coefficient of Variation 13.5 % (11.5-14.5); RDW Standard Deviation 43.5 fL (36.4-46.3); Red Blood Count 5.09 M/uL (4.7-6.1); White Blood Count 7.87 K/uL (4.8-10.8)
[2019-04-16 05:54] LABS: Calcium 8.4 mg/dl (8.5-10.1); Creatinine Clr Calc Pharmacy 127.8 ml/min; Est GFR (African American) 112.6; Est GFR (Non-African American) 97.2; Potassium 4.1 mmol/L (3.5-5.1)
[2019-04-16 06:00] LABS: Partial Thromboplastin Ratio 1.9
[2019-04-16 06:06] LABS: Partial Thromboplastin Time 52.4 Seconds (21.0-31.0)
[2019-04-16 06:42] LABS: Estimated Average Glucose 117 mg/dl; Hemoglobin A1C 5.7 % (4.5-5.6)
[2019-04-16] MEDS: HEPARIN SODIUM/DEXTROSE 25,000 UNITS/500 ML BAG IV SCH (08:05)
[2019-04-16] MEDS: NICOTINE 14 MG/24 HR PATCH TD SCH (08:08)
[2019-04-16] MEDS: PANTOprazole 40 MG TAB PO SCH ×2 (08:08→20:50)
[2019-04-16] MEDS: ASPIRIN 81 MG ECTAB PO SCH (08:09)
[2019-04-16] MEDS: METOPROLOL TARTRATE 25 MG TAB PO SCH ×2 (08:09→20:50)
--- NOTE | 2019-04-16 09:06 | Pre Anesthesia Assessment ---
Date of Service April 16, 2019 Pre Sedation Assessment Vital Signs Temp Pulse Pulse Resp BP Pulse Ox Pulse Ox 04/17/19 08:00 36.6 C 77 18 147/89 H 93 04/17/19 07:16 56 L 04/17/19 03:04 36.5 C 72 19 136/89 93 04/16/19 23:15 36.7 C 70 18 123/79 91 04/16/19 19:16 36.4 C L 88 19 138/96 94 04/16/19 17:55 36.6 C 99 H 18 142/92 H 94 04/16/19 16:55 36.3 C L 83 16 143/86 H 96 04/16/19 16:35 36.3 C L 83 83 18 163/84 H 94 04/16/19 16:00 36.3 C L 99 H 99 H 18 142/93 H 95 04/16/19 15:30 36.2 C L 80 19 135/86 95 04/16/19 15:25 36.7 C 83 83 16 124/86 95 04/16/19 15:05 77 04/16/19 14:56 36.7 C 77 77 16 145/93 H 94 04/16/19 14:43 94 04/16/19 14:40 37.2 C 76 16 145/96 H 92 04/16/19 14:10 70 18 166/109 H 91 04/16/19 14:05 68 18 150/102 H 91 04/16/19 14:00 69 18 158/103 H 91 04/16/19 13:53 72 18 158/103 H 92 Cardiovascular RRR, no murmur, no edema + S1 normal and + S2 normal Respiratory normal respiratory effort, lungs clear to auscultation Pre-Sedation Airway Assessment Smoking Status: Current every day smoker Mallampati Class: II ASA: ASA3 Procedure Planning Current Medications Reviewed: Yes Notes The planned sedation has been discussed with the patient. Informed Consent was obtained. I have identified the patient, determined the appropriateness of sedation and have assessed the patient immediately prior to the procedure. All medicine(s) and interventions are by my order.
--- NOTE | 2019-04-16 10:44 | Cardiology Progress Note ---
Date of Service April 16, 2019 Assessment & Plan (1) Unstable angina: (2) HTN (hypertension): (3) High cholesterol: (4) Tobacco abuse: (5) EtOH dependence: Risks of cardiac catheterization reviewed. Patient agreeable to procedure. He is a drug-eluting stent candidate if necessary. IV heparin will be placed on hold at this time. Further recommendations pending result of cardiac catheterization. Subjective Patient seen exam at the bedside. No recurrent chest discomfort overnight. Cardiac enzymes are negative. is present at bedside. Patient offers no complaints at this time. Review of Systems Review of Systems: All systems reviewed & are unremarkable except as noted in HPI & below Physical Exam Constitutional: well developed, well nourished and + obese ENMT: Mallampati Class: II Respiratory: normal respiratory effort, lungs clear to auscultation Cardiovascular: RRR, no murmur, no edema Rate/Rhythm: regular rate and reg ular rhythm Heart Sounds: normal S1 and normal S2; no murmur and no cardiac rub Vessels: femoral pulses present and radial pulses present; no JVD and no carotid bruit Extremities: no calf tenderness, no pedal edema and no edema Gastrointestinal (Abdomen): Inspection/Auscultation: abdomen normal to inspection and normal bowel sounds; abdomen not distended Percussion/Palpation: abdomen soft; abdomen nontender, no guarding and abdomen not rigid Musculoskeletal: no cyanosis or clubbing, extremities motor strength 5/5 Neurologic: PERRL, EOMI, accommodation nl, no face palsy, no dysarthria Results & Data Vital Signs (Past 12 Hours) Vital Signs Temp Pulse Pulse Resp BP BP Pulse Ox 04/16/19 07:35 63 04/16/19 07:27 36.3 C L 66 18 113/71 94 04/16/19 03:57 36.5 C 62 18 116/72 94 04/15/19 23:11 36.6 C 72 18 108/69 93
[2019-04-16] MEDS ORDERED: HEPARIN (PORCINE) 1000 UNIT/ML 10 ML (CATH LAB USE ONLY) ONE ×2 (12:33→13:31)
[2019-04-16] MEDS ORDERED: fentaNYL citrate 100 MCG/2 ML VIAL ONE ×2 (12:33→13:54)
[2019-04-16] MEDS ORDERED: MIDAZOLAM HCL 1 MG/ML 2ML VIAL ONE ×2 (12:33→13:32)
[2019-04-16] MEDS ORDERED: NITROGLYCERIN/D5W 100MCG/ML 20ML SYR ONE (12:33)
[2019-04-16] MEDS ORDERED: NiCARDipine HCL INJ 2.5 MG/ML 10 ML AMP ONE (12:33)
--- NOTE | 2019-04-16 13:17 | Post Anesthesia Assessment ---
Date of Service April 16, 2019 Post Sedation Assessment Vital Signs Temp Pulse Pulse Resp BP Pulse Ox Pulse Ox 04/17/19 08:00 36.6 C 77 18 147/89 H 93 04/17/19 07:16 56 L 04/17/19 03:04 36.5 C 72 19 136/89 93 04/16/19 23:15 36.7 C 70 18 123/79 91 04/16/19 19:16 36.4 C L 88 19 138/96 94 04/16/19 17:55 36.6 C 99 H 18 142/92 H 94 04/16/19 16:55 36.3 C L 83 16 143/86 H 96 04/16/19 16:35 36.3 C L 83 83 18 163/84 H 94 04/16/19 16:00 36.3 C L 99 H 99 H 18 142/93 H 95 04/16/19 15:30 36.2 C L 80 19 135/86 95 04/16/19 15:25 36.7 C 83 83 16 124/86 95 04/16/19 15:05 77 04/16/19 14:56 36.7 C 77 77 16 145/93 H 94 04/16/19 14:43 94 04/16/19 14:40 37.2 C 76 16 145/96 H 92 04/16/19 14:10 70 18 166/109 H 91 04/16/19 14:05 68 18 150/102 H 91 04/16/19 14:00 69 18 158/103 H 91 04/16/19 13:53 72 18 158/103 H 92 Recovery Score Activity: Moves 4 extremities Respiration: Deep Breath/Cough Circulation: +/-20% PreAnes Value Consciousness: Fully Awake Oxygen Saturation: > 92% On Room Air Discharge Sedation Level of Care: Phase I Post Sedation Plan On clinical assessment, the patient appears to have tolerated the sedation without complications. Patient is recovering as anticipated. Patient will continue to be monitored by nursing and may be discharged when sedation discharge criteria are met per below protocol. Upon Completions of procedure up to 15 minutes continue every 5 minute vital signs and the P.A.R. score; then discharge to a Phase I or Fast Track to Phase II per the following guidelines: * Discharge Patient to appropriate Phase II area if PAR is 8 or greater or return to pre- procedure baseline. The post - procedure orders will be as directed. * If PAR score is less than 8 or not return to pre-procedure baseline then patient will follow Phase I monitoring till PAR is reached for Phase II. The Phase I may be done in procedure room or may call to secure a Phase I area. * If naloxone or flumazenil are used for reversal, hold in Phase I for continued monitoring from when last reversal dose was given for a minimum of 60 minutes or longer pending the nurse and/or physician discretion of patient condition before discharge to Phase II. Please call the Sedation Physician to re-evaluate and complete post-note for discharge to Phase II area. Do NOT discharge from procedure sedation or Phase 1 until post- sedation evaluation note is complete by procedure /sedation MD Sedation Discharge Instructions to be given to the patient at discharge to home.
--- NOTE | 2019-04-16 13:33 | Cardiac Catheterization ---
Cardiac Cath Procedure Full Procedure Date April 16, 2019 Pre-Procedure Diagnosis Pre-Procedure Diagnosis: Acute Coronary Syndrome and Angina AUC Score AUC Score: 8 Post-Procedure Diagnosis Post-Procedure Diagnosis: Severe CAD and Elevated Intracardiac Pressures Procedure(s) Performed Procedure(s) Performed: Coronary Angiography and Left Heart Cath Catering And Events Manager Grant Arambula DO Dye Tub Operator(s) Peyton RTR Estimated Blood Loss Estimated Blood Loss: 5cc Medication(s) Medication(s): Fentanyl, Heparin, Lidocaine 1%, Nicardipine, Nitroglycerin and Versed Summary of Findings Severe RCA stenosis with 80% proximal and 80-90% mid stenosis. Hemodynamics Rest Ao:: 114/72/88 Final Ao: 122/71/81 LV: 124/5/16 Recommendations Recommendations: PCI without planned CABG Specimens Specimens: None Radiation Exposure (mGy) 1223 Contrast (mls) 45 Fluids (cc crystalloids) Fluids (cc crystalloids): 50 Nss Anesthesia Moderate Sedation. Start 1245. End 1306. Sedation monitor: Rod LESLIE Procedural Complication(s) None Disposition Patient remained in Chief Chemist for PCI of the RCA. I attest to the content of the Intraoperative Record and any orders documented therein. Any exceptions are noted below. ACC Data: Chief Chemist Cardiac Status Clinical evaluation leading to the procedure CAD Presenation: Unstable angina Anginal Classification: CCS III Heart Failure: No Cardiogenic Shock within 24 Hours: No Cardiac Arrest within 24 Hours: No Imaging Studies Past 6 Months: Yes Stress Studies Past 6 Months: No Coronary Anatomy Dominant: Right Left Main (% Stenosis): Distal (30%) LAD (% Stenosis): Proximal (20%) and Mid (40%) D1 (% Stenosis): Proximal (10%) and Mid (30-40% at bifurcation) Circumflex (% Stenosis): Mid (30% at bifurcation of OM1.) and Distal (10% diffuse) RCA (% Stenosis): Proximal (80%), Mid (80-90%, hazy) and Distal (10%) R PDA (% Stenosis): Mid (10%) and Distal (10%) R PL1 (% Stenosis): Ostial (30%) R PL2 (% Stenosis): Normal Ramus (% Stenosis): Normal Diagnostic Physicians Name: Grant Arambula DO Status: Urgent Closure Device Percutaneous Entry Location: Radial Closure Device: Radial Band Recommendations: PCI without planned CABG Intraprocedure Events Significant Disection: No Perforation: No
[2019-04-16] MEDS ORDERED: CLOPIDOGREL BISULFATE 300 MG TAB ONE (13:47)
[2019-04-16] MEDS ORDERED: ONDANSETRON INJ 2 MG/ML 2 ML VIAL IV PRN (14:08)
[2019-04-16] MEDS ORDERED: NITROGLYCERIN SL 0.4 MG/TAB TAB SL PRN (14:08)
[2019-04-16] MEDS ORDERED: SODIUM CHLORIDE 0.9% 1000ML 1,000 ML IV SCH (14:15)
[2019-04-16] MEDS: ATORVASTATIN 40 MG TAB PO SCH (14:30)
--- NOTE | 2019-04-16 15:16 | Post Anesthesia Assessment ---
Date of Service April 16, 2019 Post Sedation Assessment Vital Signs Temp Pulse Pulse Resp BP BP Pulse Ox 04/16/19 14:56 98.1 F 77 77 16 145/93 H 94 04/16/19 14:43 04/16/19 14:40 99.0 F 76 16 145/96 H 92 04/16/19 14:10 70 18 166/109 H 91 04/16/19 14:05 68 18 150/102 H 91 04/16/19 14:00 69 18 158/103 H 91 04/16/19 13:53 72 18 158/103 H 92 04/16/19 07:35 63 04/16/19 07:27 97.3 F L 66 18 113/71 94 04/16/19 03:57 97.7 F 62 18 116/72 94 04/15/19 23:11 97.9 F 72 18 108/69 93 04/15/19 19:12 97.9 F 77 18 133/86 94 04/15/19 16:52 70 Pulse Ox 04/16/19 14:56 04/16/19 14:43 94 04/16/19 14:40 04/16/19 14:10 04/16/19 14:05 04/16/19 14:00 04/16/19 13:53 04/16/19 07:35 04/16/19 07:27 04/16/19 03:57 04/15/19 23:11 04/15/19 19:12 04/15/19 16:52 Recovery Score Activity: Moves 4 extremities Respiration: Deep Breath/Cough Circulation: +/-20% PreAnes Value Consciousness: Fully Awake Oxygen Saturation: > 92% On Room Air Post Anesthesia Score: 10 Discharge Sedation Level of Care: Fast Track Phase II Post Sedation Plan On clinical assessment, the patient appears to have tolerated the sedation without complications. Patient is recovering as anticipated. Patient will continue to be monitored by nursing and may be discharged when sedation discharge criteria are met per below protocol. Upon Completions of procedure up to 15 minutes continue every 5 minute vital signs and the P.A.R. score; then discharge to a Phase I or Fast Track to Phase II per the following guidelines: * Discharge Patient to appropriate Phase II area if PAR is 8 or greater or return to pre- procedure baseline. The post - procedure orders will be as directed. * If PAR score is less than 8 or not return to pre-procedure baseline then patient will follow Phase I monitoring till PAR is reached for Phase II. The Phase I may be done in procedure room or may call to secure a Phase I area. * If naloxone or flumazenil are used for reversal, hold in Phase I for continued monitoring from when last reversal dose was given for a minimum of 60 minutes or longer pending the nurse and/or physician discretion of patient condition before discharge to Phase II. Please call the Sedation Physician to re-evaluate and complete post-note for discharge to Phase II area. Do NOT discharge from procedure sedation or Phase 1 until post- sedation evaluation note is complete by procedure /sedation MD Sedation Discharge Instructions to be given to the patient at discharge to home.
--- NOTE | 2019-04-16 15:19 | Cardiac Catheterization ---
[facility] Data: Marketing Communications Specialist Cardiac Status Clinical evaluation leading to the procedure CAD Presenation: Unstable angina Anginal Classification: CCS III Heart Failure: No Cardiogenic Shock within 24 Hours: No Cardiac Arrest within 24 Hours: No Imaging Studies Past 6 Months: Yes Stress Studies Past 6 Months: No Diagnostic Physicians Name: Michael Feng MD Closure Device Percutaneous Entry Location: Radial Closure Device: Radial Band Recommendations: PCI without planned CABG PCI Indication: Unstable Angina Lesion Segment Name: mid RCA Culprit Artery: Yes Stenosis Prior to Rx (%): 80-90 Chronic Total Occlusion: No IVUS: No FFR: No Pre-Procedure TYREL Flow: 3 Previously Treated Lesion: No Lesion Complexity: Non-High/Non-C Lesion Length (mm): 20 Thrombus Present: No Bifurcation Lesion: Yes Guidewire Across Lesion: Stenosis Post-Procedure (%): 0 Post-Procedure TYREL Flow: 3 Devices(s) Deployed: Yes Yes Intraprocedure Events Significant Disection: No Perforation: No Cardiac Cath Procedure Full Procedure Date April 16, 2019 Pre-Procedure Diagnosis Pre-Procedure Diagnosis: Acute Coronary Syndrome and Angina AUC Score AUC Score: 8 Post-Procedure Diagnosis Post-Procedure Diagnosis: Severe CAD and Successful PCI Procedure(s) Performed Procedure(s) Performed: Drug Eluting Stent Engraver Picture Michael Feng MD Manager Assembly(s) [facility] RTR Estimated Blood Loss Estimated Blood Loss: 5cc (15) Medication(s) Medication(s): Fentanyl, Heparin, Nicardipine, Nitroglycerin and Versed Medication(s): Clopidogrel Summary of Findings Indication: Accelerating angina Access: 6Fr right radial artery Catheters: JR4 guide Findings: For full details of patient's coronary angiography please see cath report dictated by Dr. Arambula. Briefly patient found to have sequential 80+% lesions in his mid RCA. -- PCI -- Antithrombotic therapy: Heparin, Clopidogrel Procedure: RCA cannulated with JR4 guide BMW wire passed across lesion into distal vessel Mid RCA lesions predilated with 3.0 compliant balloon Late-mid RCA lesion stented with 4.0 x 22 Dae MYNOR Early-mid RCA lesion stented with 4.5 x 18 Dae MYNOR Stents post-dilated with 4.5 noncompliant balloon IC vasodilators administered for spasm Post procedure TYREL 3 flow, stents well expanded with minimal residual stenosis and no apparent cardiac complications. Arterial Closure: TR Band Summary: 1. Successful PCI of sequential RCA lesions with 2 non-overlapping drug-eluting stents (4.5 x 18, 4.0 x 22 Dae). Recommendations: To PCU for continued monitoring Loaded with Clopidogrel 600mg in computer lab assistant Continue dual-antiplatelet therapy for at least 1 year Continue statin, and ASCVD risk factor modification Consult cardiac Rehab Hemodynamics Rest Ao:: 147/82/105 Final Ao: 161/93/119 LV: 124/16 Recommendations Recommendations: PCI without planned CABG Specimens Specimens: None Radiation Exposure (mGy) 3698 Contrast (mls) 120 Fluids (cc crystalloids) Fluids (cc crystalloids): 70 Drains Drains: none Anesthesia Moderate Sedation.Sedation monitor: Rod LESLIE Procedural Complication(s) None Disposition PCU I attest to the content of the Intraoperative Record and any orders documented therein. Any exceptions are noted below. [facility] Card Cath Procedure Codes Moderate Sedation Procedure 1: Sedation/Anesthesia: 41227 Mod Sedation by the same physician;Init15 Min Child Age 5 & Up Procedure 2: Sedation/Anesthesia: 75540 Mod Sedation by the same physician; Ea [id number] Minutes Stenting Procedure 1: Cardiovascular Stent Procedures: 44676 Perc transcatheter placement of intracoronary stent(s), with ang PG Care Time/CCT Total # of Minutes Spent Total Time Spent with Patient: Total time spent is greater than 50% in coordination of care (as documented) at patient's floor/unit and/or counseling patient:
[2019-04-16] MEDS ORDERED: ACETAMINOPHEN 325 MG TAB PO PRN (16:31)
--- NOTE | 2019-04-16 16:31 | Hospitalist Progress Note ---
Date of Service April 16, 2019 Assessment & Plan (1) Chest pain, exertional: Chest pain from Coronary artery disease and usntable angina -Mr. Richter is a 53-year-old male who has significant past medical history of HTN, HLD, GERD, tobacco abuse, alcohol abuse who presents to [facility] ED secondary to exertional chest pain x2 to 3 weeks. -In ED patient was hypertensive but otherwise hemodynamically stable. His initial troponin was negative and EKG revealed normal sinus rhythm at [address] or T wave changes. Chest x-ray revealed cardiomegaly but no overt cardiopulmonary abnormality. -patient was started on heparin drip and evaluated by cardiology on 04/15/19 admission day -04/16/19 Patient was seen and examined earlier this AM while on heparin drip. Was not having chest pain symptoms at that time. Patient was sent down to cardiac cath as per cardiology service.Patient returns to telemetry [place] after Successful PCI of sequential RCA lesions with 2 non-overlapping drug-eluting stents (4.5 x 18, 4.0 x 22 Dae) for coronary artery disease (2) HTN (hypertension): -Patient with history of hypertensive in the past, treated with lisinopril 5 mg daily. Per lisinopril discontinued secondary to patient with significant weight l oss and side effect of cough -was Give 50mg Losartan x 1 on 04/16/19 -continue cardiovascular medications as aspirin, clopidogral, metoprolol, statin (3) High cholesterol: -statin (4) Tobacco abuse: -Nicotine patch -encourage smoking cessation (5) EtOH dependence: -Patient admits to drinking 2-3 light beers a day -currently on Alcohol withdrawal monitoring protocol but no signs of alcohol withdrawal (6) Acid reflux: -Continue PPI (7) DVT prophylaxis: -SCD/TEDS Subjective Patient was seen and examined earlier this AM while on heparin drip. Was not having chest pain symptoms at that time. Patient was sent down to cardiac cath as per cardiology service.Patient returns to telemetry [place] after Successful PCI of sequential RCA lesions with 2 non-overlapping drug-eluting stents (4.5 x 18, 4.0 x 22 Dae) for coronary artery disease. Patient currently feeling comfortable. on room air. no chest pain. no shortness of breath. no dizziness. no headache. no vomiting. no abdominal pain. Review of Systems Review of Systems: All systems reviewed & are unremarkable except as noted in HPI & below Physical Exam Constitutional: comfortable Eyes: PERRL, conjunctivae normal, anicteric sclerae EOM intact bilaterally ENMT: external ear and nose normal, oropharynx normal Neck: normal visual inspection Respiratory: normal respiratory effort, lungs clear to auscultation Gastrointestinal (Abdomen): normal bowel sounds, soft, nontender, no hepatosplenomegaly Musculoskeletal: Head/Neck/Chest: normocephalic and head atraumatic Neurologic: PERRL, EOMI, accommodation nl, no face palsy, no dysarthria CN's II-XI intact bilaterally Psychiatric: A+Ox3, euthymic affect Results & Data Vital Signs (Past 12 Hours) Vital Signs Temp Pulse Pulse Resp BP Pulse Ox Pulse Ox 04/16/19 16:00 36.3 C L 99 H 99 H 18 142/93 H 95 04/16/19 15:30 36.2 C L 80 19 135/86 95 04/16/19 15:25 36.7 C 83 83 16 124/86 95 04/16/19 15:05 77 04/16/19 14:56 36.7 C 77 77 16 145/93 H 94 04/16/19 14:43 94 04/16/19 14:40 37.2 C 76 16 145/96 H 92 04/16/19 14:10 70 18 166/109 H 91 04/16/19 14:05 68 18 150/102 H 91 04/16/19 14:00 69 18 158/103 H 91 04/16/19 13:53 72 18 158/103 H 92 04/16/19 07:35 63 04/16/19 07:27 36.3 C L 66 18 113/71 94
[2019-04-17] MEDS: NITROGLYCERIN 2% OINTMENT 30GM TUBE EXT SCH ×2 (04:22→09:23)
[2019-04-17] MEDS: NICOTINE 14 MG/24 HR PATCH TD SCH (07:26)
[2019-04-17] MEDS: METOPROLOL TARTRATE 25 MG TAB PO SCH (07:53)
[2019-04-17] MEDS: ASPIRIN 81 MG ECTAB PO SCH (07:54)
[2019-04-17] MEDS: ATORVASTATIN 40 MG TAB PO SCH (07:54)
[2019-04-17] MEDS: PANTOprazole 40 MG TAB PO SCH (07:54)
[2019-04-17 08:09] LABS: Basophils # (auto) 0.03 K/uL (0-0.2); Basophils % (auto) 0.4 %; Eosinophils # (auto) 0.27 K/uL (0-0.5); Eosinophils % (auto) 3.4 %; Hematocrit (blood only) 46.1 % (42-52); Hemoglobin 15.6 g/dL (14.0-18.0); Immature Granulocytes # (auto) 0.01 K/uL (0.00-0.02); Immature Granulocytes % (auto) 0.1 %; Lymphocytes % (auto) 20.4 %; Mean Corpuscular Hemoglobin 29.8 pg (25-34); Mean Corpuscular Hgb Conc 33.8 g/dL (32-36); Mean Corpuscular Volume 88.1 fL (80-100); Mean Platelet Volume 10.2 fL (7.4-10.4); Monocytes # (auto) 0.69 K/uL (0.11-0.59); Monocytes % (auto) 8.8 %; Neutrophils # (auto) 5.24 K/uL (1.4-6.5); Neutrophils % (auto) 66.9 %; Platelet Count 201 K/uL (130-400); RDW Coefficient of Variation 13.3 % (11.5-14.5); RDW Standard Deviation 43.5 fL (36.4-46.3); Red Blood Count 5.23 M/uL (4.7-6.1); White Blood Count 7.84 K/uL (4.8-10.8)
[2019-04-17 08:35] LABS: Albumin Level 3.8 gm/dl (3.4-5.0); BUN Creatinine Ratio 9.6 (10-20); Calcium 9.4 mg/dl (8.5-10.1); Est GFR (African American) 113.1; Est GFR (Non-African American) 97.6
[2019-04-17 08:37] LABS: Albumin Globulin Ratio 1.1 (0.9-2); Bilirubin,Total 0.5 mg/dl (0.2-1); Globulin 3.4 gm/dl (2.5-4.0); Total Protein 7.2 gm/dl (6.4-8.2)
[2019-04-17] MEDS ORDERED: CLOPIDOGREL BISULFATE 75 MG TAB PO SCH (09:00)
--- NOTE | 2019-04-17 10:57 | Hospitalist Progress Note ---
Date of Service April 17, 2019 Assessment & Plan (1) Chest pain, exertional: Chest pain from Coronary artery disease of campo heart and unstable angina -Mr. Richter is a 53-year-old male who has significant past medical history of HTN, HLD, GERD, tobacco abuse, alcohol abuse who presents to [facility] ED secondary to exertional chest pain x2 to 3 weeks. -In ED patient was hypertensive but otherwise hemodynamically stable. His initial troponin was negative and EKG revealed normal sinus rhythm at [address] or T wave changes. Chest x-ray revealed cardiomegaly but no overt cardiopulmonary abnormality. -patient was started on heparin drip and evaluated by cardiology on 04/15/19 adm ission day -04/16/19 Patient was seen and examined earlier this AM while on heparin drip. Was not having chest pain symptoms at that time. Patient was sent down to cardiac cath as per cardiology service.Patient returns to telemetry [place] after Successful PCI of sequential RCA lesions with 2 non-overlapping drug-eluting stents (4.5 x 18, 4.0 x 22 Dae) for coronary artery disease -04/17/19: discharge to home patient will need to be on aspirin 81 mg daily and clopidogrel 75 mg daily for 1 year to prevent occlusion of the the drug eluting stents. patient should take metoprolol 12.5 twice a day as outpatient and atorvastatin 80 mg daily as outpatient advise smoking cessation, nicotine patch prescribed Discharge Medications sent electronically [facility] [address] [place] [id number] Follow up appointments 04/22/2019 11:20 AM Provider Terence Rey MD [facility] 04/24/2019 2:00 PM Provider Jaycee Jung PA-C [facility] 05/08/2019 12:[address] [facility] [address] , [place] [address] (2) HTN (hypertension): -Patient with history of hypertensive in the past, treated with lisinopril 5 mg daily. Per lisinopril discontinued secondary to patient with significant weight loss and side effect of cough -was Give 50mg Losartan x 1 on 04/16/19 -continue cardiovascular medications as aspirin, clopidogral, metoprolol, statin (3) High cholesterol: -statin (4) Tobacco abuse: -Nicotine patch -encourage smoking cessation (5) EtOH dependence: -Patient admits to drinking 2-3 light beers a day -had been on Alcohol withdrawal monitoring protocol but no signs of alcohol withdrawal (6) Acid reflux: -Continue PPI (7) DVT prophylaxis: -SCD/TEDS while in the hospital, ambulation Discharge diagnosis: Chest pain from Coronary artery disease of campo heart and unstable angina, s/p insertion of drug eluting coronary artery stent (2 stents) to the RCA (right coronary artery), hypertension, tobacco use, hyperlipidemia Subjective Patient did not have any acute events overnight. no chest pain. no palpitations. no shortness of breath. breathing on room air. no abdominal pain. no dizziness. no lightheadedness Review of Systems Review of Systems: All systems reviewed & are unremarkable except as noted in HPI & below Physical Exam Constitutional: comfortable Eyes: PERRL, conjunctivae normal, anicteric sclerae EOM intact bilaterally ENMT: external ear and nose normal, oropharynx normal Neck: normal visual inspection Respiratory: normal respiratory effort, lungs clear to auscultation Gastrointestinal (Abdomen): normal bowel sounds, soft, nontender, no hepatosplenomegaly Musculoskeletal: Head/Neck/Chest: normocephalic and head atraumatic Neurologic: PERRL, EOMI, accommodation nl, no face palsy, no dysarthria CN's II-XI intact bilaterally Psychiatric: A+Ox3, euthymic affect Results & Data Vital Signs (Past 12 Hours) Vital Signs Temp Pulse Pulse Resp BP Pulse Ox 04/17/19 08:00 36.6 C 77 18 147/89 H 93 04/17/19 07:16 56 L 04/17/19 03:04 36.5 C 72 19 136/89 93 04/16/19 23:15 36.7 C 70 18 123/79 91
--- NOTE | 2019-04-17 11:12 | Discharge Summary ---
Date of Service April 17, 2019 Admission HPI Per Admitting Provider Mr. Richter is a 53-year-old male who has significant past medical history of HTN, HLD, GERD, tobacco abuse, alcohol abuse who presents to [facility] ED secondary to exertional chest pain x2 to 3 weeks. He elicits over the past 2 to 3 weeks whenever he exerts himself he gets substernal, nonradiating chest pressure. is at bedside. Symptoms resolved approximately 10 minutes with rest. 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 He has never had anything like this in the past. He does occasionally get GERD and therefore he tried to drink some milk which usually improves his symptoms. This did not resolve his symptoms. He denies any diaphoresis, lightheadedness, dizziness, nausea, vomiting, palpitations, cough, hemoptysis with symptoms. He further denies any recent illness, fever, chills, sweats, syncope, shortness of breath at rest, CATHERINE, PND, orthopnea, abdominal pain, change in bowel or urinary habits. He occasionally does get mild lower extremity swelling. He is also noticed his symptoms at work. What prompted him to seek ED treatment today is that over the past 2 nights he woke up at approximately 3 AM with substernal chest pressure while lying down. The symptoms are set up. He is an every day smoker approximately 1 to 2 packs a day. He also drinks 2-3 light beers daily. He is unsure of his exact family history but does elicit that his sister who is 59 was told she has a, "blockage," but unknown to what extent. He has not had anything to eat today but he did have 1 cup of caffeinated coffee. In ED patient was hypertensive but otherwise hemodynamically stable. His initial troponin was negative and EKG revealed normal sinus rhythm at [address] or T wave changes. His CBC and CMP relatively unremarkable except for mildly elevated glucose at 105. Chest x-ray revealed cardiomegaly but no overt cardiopulmonary abnormality. Admission Exam Per Admitting Provider Constitutional: WD/WN, male, obese, vitals as above, NAD, sitting up in bed, pleasant, conversing easily Head: Normocephalic, Atraumatic Eyes: PERRL, conjunctivae normal, anicteric sclerae ENMT: external ear and nose normal, oropharynx normal Neck: trachea midline, no thyromegaly normal visual inspection Respiratory: normal respiratory effort, lungs clear to auscultation, no wheeze, rales, rhonchi. Normal insp/exp effort, no accessory muscle use Cardiovascular: RRR, no murmur, trace pretibial edema, negative homans, no warmth or redness Vessels: no JVD or carotid bruit Chest: normal inspection of chest Abdomen: Protuberant abdomen, normal bowel sounds, soft, nontender, no hepatosplenomegaly Musculoskeletal: no cyanosis or clubbing, extremities motor strength 5/5 Skin: no rashes, warm and dry normal turgor Neurologic: PERRL, EOMI, accommodation nl, no face palsy, no dysarthria CN's II-XI intact bilaterally and moves all extremities Psychiatric: A+Ox3, euthymic affect Lymphatic: no cervical or axillary lymphadenopathy : deferred Principal Diagnosis Chest pain from Coronary artery disease of [place] heart and unstable angina, s/p insertion of drug eluting coronary artery stent (2 stents) to the RCA (right coronary artery), hypertension, tobacco use, hyperlipidemia Discharge Exam Constitutional comfortable Eyes PERRL, conjunctivae normal, anicteric sclerae EOM intact bilaterally ENMT external ear and nose normal, oropharynx normal Neck normal visual inspection Respiratory normal respiratory effort, lungs clear to auscultation Gastrointestinal (Abdomen) normal bowel sounds, soft, nontender, no hepatosplenomegaly Musculoskeletal Head/Neck/Chest: normocephalic and head atraumatic Neurologic PERRL, EOMI, accommodation nl, no face palsy, no dysarthria CN's II-XI intact bilaterally Psychiatric A+Ox3, euthymic affect Discharge Data Allergies Allergy/AdvReac Type Severity Reaction Status Date / Time No Known Allergies Allergy Unverified 04/15/19 11:34 Consultations 04/15/19 12:07 ED Decision to Admit Stat 04/15/19 12:57 Consult Cardiology Routine 04/15/19 15:33 Consult Cardiac Catheterization Routine 04/16/19 14:12 Consult Cardiac Rehabilitation Routine Procedures Performed Operation Date: 04/16/19 10:30 Actual Procedures p Cath, Left with Cors and Vent - Grant O Tyesha, DO s Drug Eluting Stent SGl Vessel - Jose Luis Feng MD s Cineradiography w/Routine Exam - Grant Arambula DO Ordered Studies 04/16/19 12:16 CL Cath Imgs for PACS use only Routine Hospital Course (1) Chest pain, exertional: Chest pain from Coronary artery disease of [place] heart and unstable angina -Mr. Richter is a 53-year-old male who has significant past medical history of HTN, HLD, GERD, tobacco abuse, alcohol abuse who presents to [facility] ED secondary to exertional chest pain x2 to 3 weeks. -In ED patient was hypertensive but otherwise hemodynamically stable. His initial troponin was negative and EKG revealed normal sinus rhythm at [address] or T wave changes. Chest x-ray revealed cardiomegaly but no overt cardiopulmonary abnormality. -patient was started on heparin drip and evaluated by cardiology on 04/15/19 admission day -04/16/19 Patient was seen and examined earlier this AM while on heparin drip. Was not having chest pain symptoms at that time. Patient was sent down to cardiac cath as per cardiology service.Patient returns to telemetry [place] after Successful PCI of sequential RCA lesions with 2 non-overlapping drug-eluting stents (4.5 x 18, 4.0 x 22 Dae) for coronary artery disease -04/17/19: discharge to home patient will need to be on aspirin 81 mg daily and clopidogrel 75 mg daily for 1 year to prevent occlusion of the the drug eluting stents. patient should take metoprolol 12.5 twice a day as outpatient and atorvastatin 80 mg daily as outpatient advise smoking cessation, nicotine patch prescribed Discharge Medications sent electronically [facility] [address] [place] [id number] Follow up appointments 04/22/2019 11:20 AM Provider Terence Rey MD Department [facility] 04/24/2019 2:00 PM Provider Jaycee Jung PA-C Department [facility] 05/08/2019 12:[address] Tyesha [facility] [address], [place] [address] (2) HTN (hypertension): -Patient with history of hypertensive in the past, treated with lisinopril 5 mg daily. Per lisinopril discontinued secondary to patient with significant weight loss and side effect of cough -was Give 50mg Losartan x 1 on 04/16/19 -continue cardiovascular medications as aspirin, clopidogral, metoprolol, statin (3) High cholesterol: -statin (4) Tobacco abuse: -Nicotine patch -encourage smoking cessation (5) EtOH dependence: -Patient admits to drinking 2-3 light beers a day -had been on Alcohol withdrawal monitoring protocol but no signs of alcohol withdrawal (6) Acid reflux: -Continue PPI (7) DVT prophylaxis: -SCD/TEDS while in the hospital, ambulation Discharge diagnosis: Chest pain from Coronary artery disease of [place] heart and unstable angina, s/p insertion of drug eluting coronary artery stent (2 stents) to the RCA (right coronary artery), hypertension, tobacco use, hyperlipidemia Total Time Total Time Spent Total Time Spent (In Minutes): 40 minutes Total Time Includes: Examination of the Patient, Discharge Planning, Medication Reconciliation and Communication With Other Providers Discharge Plan Discharge Items Patient Disposition: Home - Self-Care Reason For Visit: CHEST PAIN Discharge Diagnosis: Chest pain from Coronary artery disease of [place] heart and unstable angina, s/p insertion of drug eluting coronary artery stent (2 stents) to the RCA (right coronary artery), hypertension, tobacco use, hyperlipidemia Condition on Discharge: Good Activity: Per Instructions section Activity Comment: Patient may return to work 2 weeks from discharge date without restrictions Non-emergency contact: Primary Care Provider and Applications Systems Analyst Call non-emergency contact if: you have any medication questions Follow-up/Referrals: Terence Rey MD [Primary Care Provider] - Diet: Heart Healthy Addtl Attending Provider Instructions: patient will need to be on aspirin 81 mg daily and clopidogrel 75 mg daily for 1 year to prevent occlusion of the the drug eluting stents. patient should take metoprolol 12.5 twice a day as outpatient and atorvastatin 80 mg daily as outpatient advise smoking cessation, nicotine patch prescribed Discharge Medications sent electronically [facility] [address] [place] [address] Follow up appointments 04/22/2019 11:20 AM Provider Terence Rey MD [facility] 04/24/2019 2:00 PM Provider Jaycee Jung PA-C [facility] 05/08/2019 12:[address] [facility] [address], [place] [address] Pending Studies at Discharge: No Stand-Alone Forms: Call Back Authorization, [facility], Smoking Cessation Medications and DC Order Prescriptions: New atorvastatin 40 mg Tablet 80 mg PO QAM 30 Days Qty: 60 RF: 0 clopidogrel 75 mg Tablet 75 mg PO QAM 30 Days Qty: 30 RF: 0 aspirin [Ecotrin Low Strength] 81 mg Tablet,Delayed Release (Dr/Ec) 81 mg PO QAM 30 Days Qty: 30 RF: 0 nicotine 7 mg/24 hr Patch 24 Hour 14 mg transdermal DAILY 30 Days Qty: 30 RF: 0 metoprolol tartrate 25 mg Tablet 12.5 mg PO BID 30 Days Qty: 30 RF: 0 Continued omeprazole 20 mg capsule,delayed release(DR/EC) 20 mg PO BID RF: 0 Discontinued atorvastatin 40 mg tablet 40 mg PO HS RF: 0 Discharge Orders: Discharge Order (Routine); Ordered 04/17/19 Ordered By: Kehinde Casas Admission Data Admit Date/Time: 04/16/19 16:35 Attending Provider: Kehinde Casas Admit Provider: Ira Plata Primary Care Provider: eTrence Rey Other Providers: Grant Arambula ; Ira Plata
--- NOTE | 2019-04-17 11:14 | Cardiology Progress Note ---
Date of Service April 17, 2019 Assessment & Plan (1) S/P right coronary artery (RCA) stent placement: (2) Unstable angina: (3) HTN (hypertension): (4) High cholesterol: (5) Tobacco abuse: (6) EtOH dependence: Discussed importance of continuing dual antiplatelet therapy for minimum of 6 months post drug-eluting stent implantation. Continue atorvastatin 80 mg daily. Transition metoprolol tartrate to Toprol-XL 25 mg daily. Return to work in 2 weeks. Post catheterization restrictions noted below. I will see him back for outpatient cardiology follow-up in 1 month. ACTIVITY RECOMMENDATIONS: It is common to feel weak and fatigue for a few days. * Do not drive or operate any motorized equipment for the next three days. * Limit stair usage (2 or 3 trips a day only) for the next three days. * Do not lift anything heavier than 10 pounds for the next three days. * Do not engage in vigorous exercise or any sports for the next five days. * You may shower the day after your procedure, but do not immerse the area for three days. Cleanse the site gently with soap and water. SPECIAL CARE INSTRUCTIONS: * You may replace the pressure dressing or band-aid the morning after the procedure. * After your procedure, it is normal to have a small bruise or small lump at the site. Examine your site daily for any change in the bruise or lump, redness, swelling, drainage or numbness. Notify your doctor if any change. BLEEDING: * If there is a small amount of bleeding at the site, lie down and apply firm pressure with a clean cloth for ten minutes. When the bleeding stops, lie quietly keeping the procedure limb straight for six hours. Notify your doctor as soon as possible. * If the bleeding does not stop after ten minutes or if there is a large amount of bleeding or spurting, call 911 immediately. Continue to lie down and hold firm pressure until help arrives. SKIN IRRITATION: * You may experience some redness and/or swelling in the area where radiation was administered. If any skin irritation occurs, please contact your family physician. Subjective Patient seen and examined the bedside. Notes brief episode of chest pressure this morning in the early a.m. No recurrence. Ambulating in the halls without chest pain or unusual shortness of breath. No dysrhythmias on telemetry. Tolerating current medications. Anxious for discharge. Denies wrist discomfort or hematoma. Review of Systems Review of Systems: All systems reviewed & are unremarkable except as noted in HPI & below Physical Exam Constitutional: well developed, well nourished and + obese ENMT: Mallampati Class: II Respiratory: normal respiratory effort, lungs clear to auscultation Cardiovascular: RRR, no murmur, no edema Rate/Rhythm: regular rate and regular rhythm Heart Sounds: normal S1 and normal S2; no murmur and no cardiac rub Vessels: femoral pulses present and radial pulses present (No ecchymosis or hematoma.); no JVD and no carotid bruit Extremities: no calf tenderness, no pedal edema and no edema Gastrointestinal (Abdomen): Inspection/Auscultation: abdomen normal to inspection and normal bowel sounds; abdomen not distended Percussion/Palpation: abdomen soft; abdomen nontender, no guarding and abdomen not rigid Musculoskeletal: no cyanosis or clubbing, extremities motor strength 5/5 Neurologic: PERRL, EOMI, accommodation nl, no face palsy, no dysarthria Results & Data Vital Signs (Past 12 Hours) Vital Signs Temp Pulse Pulse Resp BP Pulse Ox 04/17/19 08:00 36.6 C 77 18 147/89 H 93 04/17/19 07:16 56 L 04/17/19 03:04 36.5 C 72 19 136/89 93 04/16/19 23:15 36.7 C 70 18 123/79 91
[2019-04-17] MEDS ORDERED: METOPROLOL SUCC 25MG EXT REL TAB PO SCH (11:45)
== END 2019-04-17 12:05 | disposition home or self-care (01) | DRG 247 ==
LOC: 2S 09:33 → ED 09:33 → SUATTDRO 12:57 → 2S 14:11